=== PATIENT | female | born 1940 | race Two or more races ===

== ENCOUNTER → 2021-04-22 | Day surgery (SDC) | payer MEDICARE, MEDICAID ==
[~2021-04-22] VITALS: Ht 152.4 cm; Wt 81.6 kg
[~2021-04-22] MED LIST: ATOR10TA69 MT; BACITRACIN 15GM TUBE TOP ONE; BUPIVACAINE HCL/PF 0.5% (5MG/ML) 10ML ONE; CEFAZOLIN SODIUM 1000MG/VIAL ONE; DEXAMETHASONE 4MG/ML 1ML VIAL ONE; FENTANYL CITRATE/PF 50MCG/ML 2ML VIAL IV PRN; FENTANYL CITRATE/PF 50MCG/ML 2ML VIAL ONE; GENTAMICIN SULF 40MG/ML 2ML VIAL ONE; LIDOCAINE HCL 1% 10 MG/ML 10ML VIAL ONE; LOSA100T32 MT; METF-414 MT; MIDAZOLAM HCL 2 MG/2 ML VIAL ONE; ONDANSETRON HCL 4MG/2ML INJ ONE; POLYMYXIN B SULFATE 500000 UNITS/VIAL ONE; PROPOFOL 200MG/20ML VIAL IV ONE; SODIUM CHLORIDE 0.9% 1,000 ML IV SCH; VANCOMYCIN HCL 1 GM/VIAL ONE
[2021-04-22 13:20] LABS: CHLORIDE 105 mEq/L (98-107)
== END | disposition home or self-care (01) ==
LOC: OR 11:46
PROVIDERS: ATTEND Podiatrist Foot & Ankle Surgery
DX: M20.41 Other hammer toe(s) (acquired), right foot (principal); M79.671 Pain in right foot; E78.00 Pure hypercholesterolemia, unspecified; K21.9 Gastro-esophageal reflux disease without esophagitis; F32.9 Major depressive disorder, single episode, unspecified; I12.9 Hypertensive chronic kidney disease with stage 1 through stage 4 chronic kidney disease, or unspecified chronic kidney disease; E11.22 Type 2 diabetes mellitus with diabetic chronic kidney disease; N18.30 Chronic kidney disease, stage 3 unspecified; E03.9 Hypothyroidism, unspecified; Z79.84 Long term (current) use of oral hypoglycemic drugs; Z79.899 Other long term (current) drug therapy; Z98.890 Other specified postprocedural states; Z20.822 Contact with and (suspected) exposure to COVID-19
CPT/HCPCS: 28820; 36415; 80048; 82962; 87426; 88307; 88311; J0690; J1100; J2250; J2405; J2704; J3010; J3490; J1580; J3370

== ENCOUNTER 2022-12-05 11:59 | Emergency (ER) | payer MEDICARE, MEDICAID ==
[~2022-12-05] VITALS: Ht 144.8 cm; Wt 75.0 kg
[~2022-12-05 11:59] MED LIST changes: -BACITRACIN 15GM TUBE TOP ONE; -BUPIVACAINE HCL/PF 0.5% (5MG/ML) 10ML ONE; -CEFAZOLIN SODIUM 1000MG/VIAL ONE; -DEXAMETHASONE 4MG/ML 1ML VIAL ONE; -FENTANYL CITRATE/PF 50MCG/ML 2ML VIAL IV PRN; -FENTANYL CITRATE/PF 50MCG/ML 2ML VIAL ONE; -GENTAMICIN SULF 40MG/ML 2ML VIAL ONE; -LIDOCAINE HCL 1% 10 MG/ML 10ML VIAL ONE; -LOSA100T32 MT; +LOSA100T33 MT; -MIDAZOLAM HCL 2 MG/2 ML VIAL ONE; -ONDANSETRON HCL 4MG/2ML INJ ONE; -POLYMYXIN B SULFATE 500000 UNITS/VIAL ONE; -PROPOFOL 200MG/20ML VIAL IV ONE; -SODIUM CHLORIDE 0.9% 1,000 ML IV SCH; -VANCOMYCIN HCL 1 GM/VIAL ONE
[2022-12-05 12:08] VITALS: O2SAT 97
[2022-12-05 15:22] LABS: CHLORIDE 105 mEq/L (98-107); INDEX HEMOLYSI 1 (1-3); INDEX ICTERIC 1 (1-4); INDEX LIPEMIC 1 (1-3); POTASSIUM 4.4 mEq/L (3.5-5.1); SODIUM 139 mEq/L (136-145)
[2022-12-05 15:28] LABS: BILIRUBIN TOTAL 0.3 mg/dL (0.1-1.0); PROTEIN TOTAL 7.7 g/dL (6.0-8.3)
[2022-12-05 15:29] LABS: BASOPHILS % 1.1 % (0.0-2.0); DIFFERENTIAL COMMENT 0; EOSINOPHILS % 2.7 % (0.0-5.0); HEMATOCRIT. 29.8 % (36.0-48.0); HEMOGLOBIN. 9.5 g/dL (12.0-16.0); MEAN CORPUSCULAR HEMOGLOBIN 24.4 pg (28.0-32.0); MEAN CORPUSCULAR HGB CONC 31.9 g/dL (31.0-37.0); MEAN CORPUSCULAR VOLUME 76.4 fL (81.0-99.0); MEAN PLATELET VOLUME 8.5 fl (7.4-10.4); MONOCYTES % 7.4 % (2.0-8.0); NEUTROPHILS % 44.8 % (40.0-76.0); PLATELET 293 x1000/uL (130-400); RED CELL DISTRIBUTION WIDTH 15.9 % (11.6-14.6)
[2022-12-05] MEDS ORDERED: ACETAMINOPHEN 325MG TABLET PO STA (15:57)
[2022-12-05] MEDS ORDERED: NAPR-679 MT (16:14)
[2022-12-05 16:27] VITALS: BP 135/52; PULSE 75; RESP 16; TEMP 98.1
[2022-12-05 16:54] LABS: ALANINE AMINOTRANSFERASE 18 IU/L (13-61); ASPARTATE AMINOTRANSFERASE 16 IU/L (15-37); CALCIUM 8.9 mg/dL (8.5-10.1); CARBON DIOXIDE 28 mEq/L (21-32); GLUCOSE 104 mg/dL (70-105); UREA NITROGEN BLOOD 22 mg/dL (7-21)
[2022-12-05 19:18] LABS: ERYTHROCYTE SEDIMENTATION RATE 23 mm/hr (0-30)
== END 2022-12-05 16:28 | disposition home or self-care (01) ==
LOC: ER 11:59
DX: M25.562 Pain in left knee (principal); E11.9 Type 2 diabetes mellitus without complications; I10 Essential (primary) hypertension
CPT/HCPCS: 36415; 71045; 73560; 80053; 85025; 85651; 93970; 99285

== ENCOUNTER 2022-12-17 12:25 | Emergency (ER) | payer MEDICARE, MEDICAID ==
[~2022-12-17] VITALS: Ht 144.8 cm; Wt 75.0 kg
[~2022-12-17 12:25] MED LIST changes: +NAPR-679 MT
[2022-12-17 12:45] VITALS: BP 122/62; PULSE 86; RESP 16; TEMP 98.6; O2SAT 99
[2022-12-17] MEDS ORDERED: IBUP-2029 MT (14:07)
== END 2022-12-17 16:53 | disposition home or self-care (01) ==
LOC: ER 12:25
DX: M79.652 Pain in left thigh (principal); I10 Essential (primary) hypertension; E78.00 Pure hypercholesterolemia, unspecified; E11.9 Type 2 diabetes mellitus without complications
CPT/HCPCS: 93971; 99284

== ENCOUNTER 2024-06-28 21:00 | Inpatient (IN) | payer MEDICARE, MEDICAID ==
[~2024-06-28] VITALS: Ht 165.1 cm; Wt 70.3 kg
[~2024-06-28 21:00] MED LIST changes: +IBUP-2029 MT
[2024-06-28 21:41] LABS: HEMATOCRIT. 29.5 % (36.0-48.0); HEMOGLOBIN. 9.8 g/dL (12.0-16.0); MEAN CORPUSCULAR HEMOGLOBIN 27.3 pg (28.0-32.0); MEAN CORPUSCULAR HGB CONC 33.1 g/dL (31.0-37.0); MEAN CORPUSCULAR VOLUME 82.4 fL (81.0-99.0); PLATELET 203 x1000/uL (130-400); RED BLOOD CELL COUNT 3.58 mill/uL (4.2-5.4); RED CELL DISTRIBUTION WIDTH 15.6 % (11.6-14.6); WHITE BLOOD COUNT 12.2 x1000/uL (4.5-11.0)
[2024-06-28] MEDS: SODIUM CHLORIDE 0.9% 1,000 ML IV ONE (21:43)
[2024-06-28 21:44] LABS: DIFFERENTIAL COMMENT 1
[2024-06-28 21:57] LABS: CHLORIDE 103 mEq/L (98-107); POTASSIUM 3.6 mEq/L (3.5-5.1); SODIUM 138 mEq/L (136-145)
[2024-06-28 21:58] LABS: CALCIUM 7.9 mg/dL (8.7-10.4); CARBON DIOXIDE 25 mEq/L (21-32)
[2024-06-28 22:03] LABS: CREATININE 0.9 mg/dL (0.6-1.0); GLUCOSE 149 mg/dL (70-105); UREA NITROGEN BLOOD 20 mg/dL (9-23)
[2024-06-28 22:04] LABS: TROPONIN I HIGH SENSITIVITY 9 ng/L (3.0-34)
[2024-06-28 22:36] LABS: ANISOCYTOSIS 1+; PLATELET ESTIMATE NORMAL
[2024-06-28 22:55] LABS: CLARITY URINE CLEAR (CLEAR); COLOR URINE YELLOW (YELLOW); GLUCOSE URINE NEGATIVE (NEGATIVE); KETONES URINE NEGATIVE (NEGATIVE); LEUKOCYTE ESTERASE URINE TRACE (NEGATIVE); NITRITE URINE POSITIVE (NEGATIVE); OCCULT BLOOD URINE TRACE (NEGATIVE); PROTEIN URINE 1+ (NEGATIVE); SPECIFIC GRAVITY URINE 1.015 (1.005-1.030); UROBILINOGEN URINE 0.2 E.U./dL (0.2-1.0)
[2024-06-28] MEDS: KETOROLAC 15MG/ML VIAL IV ONE (23:15)
[2024-06-28 23:16] LABS: BACTERIA URINE 3+; RBC URINE 0-2 /hpf (0-2); SQUAMOUS EPITHELIAL CELL URINE FEW /lpf (RARE/1+); WBC URINE 0-2 /hpf (0-2)
[2024-06-28] MEDS: CEFTRIAXONE 1GM/50ML 50 ML IV NR (23:37)
[2024-06-29] MEDS: MORPHINE SULFATE 2 MG/ML INJ (NOT FOR IM USE) IV ONE (01:52)
[2024-06-29] MEDS ORDERED: GUAIFENESIN 200MG/10ML SUGAR FREE UDC PO PRN (02:30)
[2024-06-29] MEDS ORDERED: ACETAMINOPHEN 325MG TABLET PO PRN (02:30)
[2024-06-29] MEDS ORDERED: IPRATROPIUM/ALBUTEROL 0.5-3(2.5)MG/3ML NEB HHN PRN (02:30)
[2024-06-29] MEDS ORDERED: MAGNESIUM/ALUMINUM HYDROXIDE/SIMETHICONE 30ML UDC PO PRN (02:30)
[2024-06-29] MEDS ORDERED: CEFTRIAXONE 1GM/50ML 50 ML IV SCH (02:30)
[2024-06-29] MEDS ORDERED: ASPI-1160 PO (02:30)
[2024-06-29] MEDS ORDERED: DOCUSATE SODIUM 100MG CAPSULE PO PRN (02:30)
[2024-06-29] MEDS ORDERED: CLONIDINE 0.1MG TABLET PO PRN (02:30)
[2024-06-29] MEDS ORDERED: DEXTROSE 50% WATER 50ML SYRINGE IV PRN (02:30)
[2024-06-29] MEDS ORDERED: ONDANSETRON HCL 4MG/2ML INJ IV PRN (02:30)
[2024-06-29] MEDS: SODIUM CHLORIDE 0.9% 1,000 ML IV ONE (02:43)
[2024-06-29] MEDS ORDERED: TRAZ-251 PO (03:17)
[2024-06-29 04:00] VITALS: BP 107/56; PULSE 85; RESP 19; TEMP 36.4; O2SAT 98
[2024-06-29] MEDS: ACETAMINOPHEN 325MG TABLET PO PRN (04:39)
[2024-06-29 06:00] VITALS: BP 107/56; PULSE 85; RESP 19; TEMP 36.4
[2024-06-29] MEDS: BLOOD SUGAR DIAGNOSTIC STRIP TEST SCH (06:53)
[2024-06-29 07:04] LABS: IRON 12 ug/dL (50-170)
[2024-06-29 07:07] LABS: TOTAL IRON BINDING CAPACITY 335 ug/dl (250-425)
[2024-06-29] MEDS: INSULIN LISPRO 100 UNITS/ML SUBCUT SCH (07:50)
[2024-06-29 08:00] VITALS: BP 93/45; PULSE 79; RESP 18; TEMP 37.1; O2SAT 97
[2024-06-29] MEDS: ENOXAPARIN 40MG/0.4ML SYR SUBCUT SCH (09:48)
[2024-06-29] MEDS: PANTOPRAZOLE SODIUM 40 MG/VIAL IV SCH (09:48)
[2024-06-29] MEDS: ATORVASTATIN CALCIUM 10MG TABLET PO SCH (09:48)
[2024-06-29] MEDS: LOSARTAN 100 MG TABLET PO SCH (09:49)
[2024-06-29 10:55] LABS: POTASSIUM 3.6 mEq/L (3.5-5.1)
[2024-06-29 10:56] LABS: CALCIUM 7.8 mg/dL (8.7-10.4)
[2024-06-29 11:01] LABS: CREATININE 0.9 mg/dL (0.6-1.0)
[2024-06-29 11:03] LABS: ALBUMIN 4.2 g/dL (3.2-4.8)
[2024-06-29 11:05] LABS: T4 FREE 1.17 ng/dL (0.89-1.76)
[2024-06-29 11:06] LABS: THYROID STIMULATING HORMONE 3.3 uIU/mL (0.55-4.78)
[2024-06-29 12:00] VITALS: BP 137/47; PULSE 78; RESP 18; TEMP 37; O2SAT 98
[2024-06-29 12:49] LABS: FOLIC ACID (FOLATE) SERUM 17.49 ng/mL (>5.38); VITAMIN B12 SERUM 601 pg/mL (211-911)
[2024-06-29 16:00] VITALS: BP 138/54; PULSE 74; RESP 18; TEMP 36.7; O2SAT 96
[2024-06-29] MEDS: HYDROCODONE/ACETAMINOPHEN 5/325MG TABLET PO PRN (17:23)
[2024-06-29] MEDS ORDERED: POLYETHYLENE GLYCOL 3350 (17GM) 1 DOSE PACK PO PRN (18:15)
[2024-06-29 20:00] VITALS: BP 105/47; PULSE 72; RESP 16; TEMP 36.7; O2SAT 97
[2024-06-29] MEDS ORDERED: TRAZODONE HCL 50MG TABLET PO SCH (21:00)
[2024-06-29] MEDS: CEFTRIAXONE 1GM/50ML 50 ML IV SCH (21:39)
[2024-06-29] MEDS: MELATONIN 3MG TABLET PO SCH (21:39)
[2024-06-30] VITALS: BP 124/47; RESP 16; TEMP 36.7; O2SAT 95
[2024-06-30 04:00] VITALS: BP 107/52; PULSE 76; RESP 16; TEMP 36.9; O2SAT 99
[2024-06-30 07:03] LABS: HEMATOCRIT 27.7 % (36.0-48.0); HEMOGLOBIN 9.3 g/dL (12.0-16.0); MEAN CORPUSCULAR HEMOGLOBIN 27.5 pg (28.0-32.0); MEAN CORPUSCULAR HGB CONC 33.5 g/dL (31.0-37.0); MEAN CORPUSCULAR VOLUME 81.9 fL (81.0-99.0); PLATELET 179 x1000/uL (130-400); RED BLOOD CELL COUNT 3.38 mill/uL (4.2-5.4); RED CELL DISTRIBUTION WIDTH 15.8 % (11.6-14.6); WHITE BLOOD COUNT 10.2 x1000/uL (4.5-11.0)
[2024-06-30 07:16] LABS: CHLORIDE 104 mEq/L (98-107); POTASSIUM 3.4 mEq/L (3.5-5.1); SODIUM 140 mEq/L (136-145)
[2024-06-30 07:18] LABS: CALCIUM 8.2 mg/dL (8.7-10.4); CARBON DIOXIDE 24 mEq/L (21-32)
[2024-06-30 07:23] LABS: CREATININE 0.8 mg/dL (0.6-1.0); GLUCOSE 113 mg/dL (70-105); UREA NITROGEN BLOOD 13 mg/dL (9-23)
[2024-06-30 07:24] LABS: ALBUMIN 3.8 g/dL (3.2-4.8)
[2024-06-30 07:25] LABS: ALANINE AMINOTRANSFERASE 12 IU/L (10-49); ASPARTATE AMINOTRANSFERASE 12 IU/L (<34); BILIRUBIN DIRECT 0.2 mg/dL (<=3.0); BILIRUBIN TOTAL 0.5 mg/dL (0.1-1.0); PROTEIN TOTAL 5.9 g/dL (6.0-8.3)
[2024-06-30 08:00] VITALS: BP 157/59; PULSE 72; RESP 16; TEMP 36.5; O2SAT 99
[2024-06-30] MEDS: FERROUS SULFATE 300MG/5ML UDC PO SCH (09:29)
[2024-06-30] MEDS: MULTIVITAMINS,THER W-MINERALS TABLET PO SCH (11:12)
[2024-06-30] MEDS: GABAPENTIN 100MG CAPSULE PO NR (11:12)
[2024-06-30] MEDS: POTASSIUM CHLORIDE 20MEQ/PACKET PO NR (11:13)
[2024-06-30 14:52] VITALS: BP 126/53; PULSE 69; RESP 18; TEMP 36.6; O2SAT 97
[2024-06-30 16:00] VITALS: BP 125/49; PULSE 66; PULSE 70; RESP 18; TEMP 36.8; O2SAT 98
[2024-06-30 20:00] VITALS: BP 115/53; PULSE 67; RESP 20; TEMP 36.4; O2SAT 96
[2024-06-30] MEDS: GABAPENTIN 100MG CAPSULE PO SCH (22:19)
[2024-07-01] VITALS: BP 116/52; PULSE 67; RESP 20; TEMP 36.5; O2SAT 95
[2024-07-01 08:00] VITALS: BP 143/54; PULSE 71; RESP 16; TEMP 36.7; O2SAT 98
[2024-07-01] MEDS: PANTOPRAZOLE 40MG DR TABLET PO SCH (08:46)
[2024-07-01 12:00] VITALS: BP 138/38; PULSE 60; RESP 16; TEMP 36.5; O2SAT 100
[2024-07-01 14:16] VITALS: BP 138/38; PULSE 60; TEMP 97.7; O2SAT 100
== END 2024-07-01 17:50 | disposition home health service (06) | DRG 690 ==
LOC: ER 21:00 → EDBEDREQ 23:19 → 6EST 06-29 01:28 → EDBEDREQ 06-29 01:38 → ENRESERV 06-29 04:06
PROVIDERS: ADMIT Hospitalist; ATTEND Hospitalist
DX: N39.0 Urinary tract infection, site not specified (principal); M47.812 Spondylosis without myelopathy or radiculopathy, cervical region; M50.323 Other cervical disc degeneration at C6-C7 level; J45.909 Unspecified asthma, uncomplicated; K29.70 Gastritis, unspecified, without bleeding; E11.42 Type 2 diabetes mellitus with diabetic polyneuropathy; F32.A Depression, unspecified; I10 Essential (primary) hypertension; K21.9 Gastro-esophageal reflux disease without esophagitis; E78.00 Pure hypercholesterolemia, unspecified; R53.81 Other malaise; G89.4 Chronic pain syndrome; M75.01 Adhesive capsulitis of right shoulder; Z87.891 Personal history of nicotine dependence; Z96.653 Presence of artificial knee joint, bilateral; Z83.3 Family history of diabetes mellitus; Z79.1 Long term (current) use of non-steroidal anti-inflammatories (NSAID); Z79.899 Other long term (current) drug therapy; Z79.84 Long term (current) use of oral hypoglycemic drugs
CPT/HCPCS: 36415; 71045; 80048; 80061; 80076; 81003; 82040; 82607; 82728; 82746; 82962; 83036; 83540; 83550; 84145; 84439; 84443; 84484; 85025; 85027; 93005; 97162; 97166; 99285; A4606; J0696; J1650; J1815; J1885; J2270; J2470; J7030